=== PATIENT | female | born 1940 | race Caucasian/White ===

== ENCOUNTER 2019-02-04 09:44 | Emergency (ER) | payer MEDICARE, OTHER ==
[2019-02-04 10:27] VITALS: BP 130/72
--- NOTE | 2019-02-04 10:34 | UC ---
FLU HPI - HPI Summary HPI Summary: 78-year-old female presents with sudden onset of sore throat, nasal congestion, clear nasal discharge, and occasionally productive cough for gong colored sputum yesterday. Associated with fever of 101.9, chills, malaise, and body aches. Denies ear pain, dysphagia, chest pain, shortness of breath, abdominal pain, nausea, vomiting, or diarrhea. Patient did receive flu shot. - History of Current Complaint Chief Complaint: UCGeneralIllness Stated Complaint: FEVER, COUGH, SORE THROAT Time Seen by Provider: 02/04/19 10:23 Hx Obtained From: Patient Pain Intensity: 4 - Allergy/Home Medications Allergies/Adverse Reactions: Allergies Allergy/AdvReac Type Severity Reaction Status Date / Time Penicillins Allergy Rash Verified 02/04/19 10:21 Sulfa (Sulfonamide Allergy Rash Verified 02/04/19 10:21 Antibiotics) Home Medications: Home Medications Aspirin EC TAB* [Ecotrin EC Low Dose 81 MG*] 81 mg PO DAILY 02/04/19 [History Confirmed 02/04/19] Aspirin TAB* [Aspirin 325 MG TAB*] 650 mg PO Q6H PRN 02/04/19 [History Confirmed 02/04/19] Cholecalciferol TAB* [Vitamin D TAB*] 400 unit PO DAILY 02/04/19 [History Confirmed 02/04/19] Flaxseed Oil [Altura-3 Flaxseed Oil] 1,000 mg PO DAILY 02/04/19 [History Confirmed 02/04/19] Lisinopril TAB* [Prinivil TAB*] 10 mg PO DAILY 02/04/19 [History Confirmed 02/04] Torsemide TAB* [Demadex*] 10 mg PO DAILY 02/04/19 [History Confirmed 02/04/19] Vitamin E CAP* 400 unit PO DAILY 02/04/19 [History Confirmed 02/04/19] PMH/Surg Hx/FS Hx/Imm Hx Cardiovascular History: Hypertension - Surgical History Surgical History: Yes Surgery Procedure, Year, and Place: tonsillectomy. appy - Family History Known Family History: Positive: Non-Contributory - Social History Occupation: Retired Lives: With Family Alcohol Use: None Substance Use Type: None Smoking Status (MU): Never Smoked Tobacco Review of Systems All Other Systems Reviewed And Are Negative: Yes Constitutional: Positive: Fever, Chills, Fatigue Skin: Negative: Rash Eyes: Negative: Drainage, Eye Redness ENT: Positive: Sore Throat, Nasal Discharge, Sinus Congestion. Negative: Ear Ache, Sinus Pain/Tenderness Respiratory: Positive: Cough. Negative: Shortness Of Breath Cardiovascular: Negative: Palpitations, Chest Pain Gastrointestinal: Negative: Abdominal Pain, Vomiting, Diarrhea, Nausea Genitourinary: Positive: Negative Musculoskeletal: Positive: Negative Neurological: Positive: Negative Is Patient Immunocompromised?: No Physical Exam - Summary Physical Exam Summary: GENERAL APPEARANCE: Well developed, well nourished, alert and cooperative, and appears to be in no acute distress. EYES: Conjunctiva clear. No drainage. Vision is grossly intact. EARS: External auditory canals and tympanic membranes clear, hearing grossly intact. NOSE: Mild-moderate nasal congestion. No nasal discharge. THROAT: Mild pharyngeal erythema. Surgically absent tonsils. Uvula midline. NECK: Neck supple, non-tender without lymphadenopathy. CARDIAC: Normal S1 and S2. No S3, S4 or murmurs. Rhythm is regular. There is no peripheral edema, cyanosis or pallor. Extremities are warm and well perfused. Capillary refill is less than 2 seconds. Peripheral pulses intact. LUNGS: Clear to auscultation without rales, rhonchi, wheezing or diminished breath sounds. Occasional loose non-productive cough. ABDOMEN: Positive bowel sounds. Soft, nondistended, nontender. No guarding or rebound. No masses or hepatosplenomegally. MUSKULOSKELETAL: ROM intact to all extremities. No joint erythema or tenderness. Normal muscular development. SKIN: Skin normal color, texture and turgor with no lesions or eruptions. Triage Information Reviewed: Yes Vital Signs: Initial Vital Signs Temp 99.9 F 02/04/19 10:23 Pulse 86 02/04/19 10:23 Resp 20 02/04/19 10:23 BP 130/72 02/04/19 10:23 Pulse Ox 97 02/04/19 10:23 Vital Signs Reviewed: Yes Flu Course/Dx - Course Course Of Treatment: 78-year-old female presents with sudden onset of sore throat, nasal congestion, clear nasal discharge, and occasionally productive cough for gong colored sputum yesterday. Associated with fever of 101.9, chills, malaise, and body aches. Denies ear pain, dysphagia, chest pain, shortness of breath, abdominal pain, nausea, vomiting, or diarrhea. Patient did receive flu shot. Low-grade temp of 99.9 F. Vital signs stable. Exam reveals an older adult female in no acute distress with mild to moderate nasal congestion, mild pharyngeal erythema, surgically absent tonsils, no cervical lymphadenopathy, clear bilateral breath sounds, occasional loose nonproductive cough, and otherwise unremarkable exam. Symptoms are consistent with an influenza versus viral URI. Discussed risks, benefits of starting Tamiflu and patient is electing to start at this time. Also recommending symptomatic treatment. She is to follow-up with her primary care provider in 7 days if symptoms do not improve. Anticipatory guidance and warning symptoms were reviewed with the patient. Verbalizes understanding and agrees with plan of care. - Differential Dx/Diagnosis Differential Diagnosis/HQI/PQRI: Bronchitis, Influenza, Pneumonia, Upper Respiratory Infection Provider Diagnosis: Influenza Discharge - Sign-Out/Discharge Documenting (check all that apply): Patient Departure All imaging exams completed and their final reports reviewed: No Studies - Discharge Plan Condition: Stable Disposition: HOME Prescriptions: Benzonatate CAP* [Tessalon 100 MG CAP*] 100 mg PO TID PRN #30 cap PRN Reason: Cough Oseltamivir CAP* [Tamiflu CAP*] 75 mg PO BID #10 cap Patient Education Materials: Influenza (ED) Referrals: Dylan Alvarez MD [Primary Care Provider] - 7 Days (If no improvement in symptoms. ) Additional Instructions: Your history and exam are consistent with the flu. Start Tamiflu 1 capsule twice a day for 5 days. Get plenty of rest. Drink plenty of fluids to avoid dehydration especially if you are running any fever. Take over the counter acetaminophen (Tylenol) or ibuprofen (Advil, Motrin) according to directions as needed for pain or fever. Take Tessalon Perles 1 cap every 8 hours as needed for cough. Use salt water gargles several times a day if you have a sore throat. You may also use Chloraseptic spray or Cepacol lonzenges according to directions which contain a numbing medication and can provide some temporary relief from your sore throat. Follow up with your primary care provider in 7 days if symptoms persist. Seek immediate medical attention in the emergency room if you have fever greater than 100.5 F despite taking acetaminophen or ibuprofen, have chest pain , difficulty breathing, are unable to swallow, or have any worsening of symptoms. - Billing Disposition and Condition Condition: STABLE Disposition: Home - Attestation Statements Provider Attestation: Per institutional requirements, I have reviewed the chart, however, I was not consulted specifically or made aware of this patient by the midlevel provider. I did not personally evaluate, interact with , or disposition this patient.
== END 2019-02-04 10:52 | disposition home or self-care (01) ==
LOC: UCCORT 09:44
DX: J11.1 Influenza due to unidentified influenza virus with other respiratory manifestations (principal); I10 Essential (primary) hypertension; Z88.0 Allergy status to penicillin; Z88.2 Allergy status to sulfonamides; Z79.899 Other long term (current) drug therapy; Z79.82 Long term (current) use of aspirin
CPT/HCPCS: 99202; G0463